=== PATIENT | female | born 2000 | race Caucasian/White ===

== ENCOUNTER 2024-03-07 19:20 | Emergency (ER) | payer OTHER, SELFPAY ==
--- NOTE | 2024-03-07 19:42 | ER ---
Nurse's Notes [facility] Name: Leatha Briscoe Age: 23 yrs Sex: Female : 2000 Arrival Date: 03/07/2024 Time: 19:20 Bed IW1 Private MD: Diagnosis: Cutaneous abscess of left lower limb Presentation: 03/07 19:35 Chief complaint: Patient states: red bump on left leg, started 2 days ago. Now my left tm6 calf and foot feels numb. Coronavirus screen: Client denies travel out of the [place] in the last 14 days. Ebola Screen: Patient negative for fever greater than or equal to 101.5 degrees Fahrenheit, and additional compatible Ebola Virus Disease symptoms Patient denies exposure to infectious person. Patient denies travel to an Ebola-affected area in the 21 days before illness onset. No symptoms or risks identified at this time. Initial Sepsis Screen: Does the patient meet any 2 criteria? No. Patient's initial sepsis screen is negative. Does the patient have a suspected source of infection? No. Patient's initial sepsis screen is negative. Risk Assessment: Do you want to hurt yourself or someone else? Patient reports no desire to harm self or others. Onset of symptoms was March 05, 2024. 19:35 Method Of Arrival: Ambulatory tm6 19:35 Acuity: CORY 4 tm6 Triage Assessment: 19:35 General: Appears in no apparent distress. Behavior is calm, cooperative. Pain: Denies tm6 pain. Pain: Complains of pain in left calf and dorsum of left foot Quality of pain is described as numb, Pain began today. EENT: No signs and/or symptoms were reported regarding the EENT system. Neuro: Level of Consciousness is awake, alert, obeys commands, Oriented to person, place, time, situation. Cardiovascular: Patient's skin is warm and dry. Respiratory: Airway is patent Respiratory effort is even, unlabored, Respiratory pattern is regular, symmetrical. GI: No signs and/or symptoms were reported involving the gastrointestinal system. Abdomen is flat, non-distended. : No signs and/or symptoms were reported regarding the genitourinary system. Derm: Abscess located on left reza is dime sized, has no drainage, is red, is raised. Musculoskeletal: Reports numbness in left calf and dorsum of left foot since today. Historical: - Allergies: 19:35 No Known Allergies; tm6 - PMHx: 19:35 None; tm6 - PSHx: 19:35 None; tm6 - Immunization history:: Flu vaccine is not up to date. - Infectious Disease History:: Denies. - Social history:: Smoking status: Patient denies any tobacco usage or history of. Screenin:41 [facility] ED Fall Risk Assessment (Adult) History of falling in the last 3 months, tm6 including since admission No falls in past 3 months (0 pts) Confusion or Disorientation No (0 pts) Intoxicated or Sedated No (0 pts) Impaired Gait No (0 pts) Mobility Assist Device Used No (0 pt) Altered Elimination No (0 pt) Score/Fall Risk Level 0 - 2 = Low Risk Oriented to surroundings, Maintained a safe environment, Educated pt \T\ family on fall prevention, incl call for assistance when getting out of bed. Abuse screen: Denies threats or abuse. Denies injuries from another. Nutritional screening: No deficits noted. Tuberculosis screening: No symptoms or risk factors identified. Assessment: 19:41 Reassessment: see triage assessment. tm6 Vital Signs: 19:34 Pulse 86; Resp 16; Temp 98.1(TE); Pulse Ox 100% on R/A; Weight 73.94 kg; Height 5 ft. 7 tm6 in. ; Pain 0/10; 19:34 BP 120 / 72; MAP 86 mmHg; tm6 19:34 Body Mass Index 25.53 (73.94 kg, 170.18 cm) tm6 19:34 Pain Scale: Adult tm6 ED Course: 19:23 Patient arrived in ED. im 19:35 Arm band placed on right wrist. tm6 19:36 Triage completed. tm6 19:37 Riya Lacey F[facility]-C [facility]. kb 19:37 Jimbo Moscoso MD is Attending Physician. kb 19:41 Sonu Dickinson, PAPI is Primary Nurse. tm6 19:41 Patient has correct armband on for positive identification. Provided Education on: use tm6 of prescription . 19:41 No provider procedures requiring assistance completed. Patient did not have IV access tm6 during this emergency room visit. Administered Medications: 19:47 Drug: Trimethoprim-Sulfamethoxazole PO (160 mg-800 mg (DS) 1 tablet PO once Route: PO; tm6 19:47 Follow up: Response: Medication administered at discharge. tm6 Medication: 19:41 VIS not applicable for this client. tm6 Outcome: 19:42 Discharge ordered by . kb 19:47 Discharged to home ambulatory, with family, tm6 19:47 Condition: stable 19:47 Discharge instructions given to patient, family, Instructed on discharge instructions, follow up and referral plans. medication usage, Demonstrated understanding of instructions, follow-up care, medications, Prescriptions given X 1, :47 Patient left the ED. tm6 Signatures: Riya Lacey, MOTOR TESTER-C MOTOR TESTER-Tamia Singletary Tawney, RN RN tm6
--- NOTE | 2024-03-07 19:42 | EDPHYS ---
Physician Documentation [facility] Name: Leatha Briscoe Age: 23 yrs Sex: Female : 2000 Arrival Date: 03/07/2024 Time: 19:20 Bed IW1 Private MD: ED Physician Jimbo Moscoso HPI: 03/07 20:16 This 23 yrs old Female presents to ER via Ambulatory with complaints of Leg Swelling - kb left. 20:16 Pt is a 23 year old female who presents for abscess to left reza that started 2 days kb ago. Reports slight redness and pain surrounding the area and states it has gotten progressively worse. Denies fever, drainage. Historical: - Allergies: 19:35 No Known Allergies; tm6 - PMHx: 19:35 None; tm6 - PSHx: 19:35 None; tm6 - Immunization history:: Flu vaccine is not up to date. - Infectious Disease History:: Denies. - Social history:: Smoking status: Patient denies any tobacco usage or history of. ROS: 20:14 Constitutional: As per HPI kb Exam: 20:14 Constitutional: This is a well developed, well nourished patient who is awake, alert, kb and in no acute distress. Head/Face: Normocephalic, atraumatic. ENT: Moist Mucous membranes Cardiovascular: Regular rate Respiratory: Respirations even and unlabored. No increased work of breathing. Talking in full sentences Abdomen/GI: Soft, non-tender. No distention MS/ Extremity: Pulses equal, no cyanosis. Neurovascular intact. Full, normal range of motion. Neuro: Awake and alert, GCS 15, oriented to person, place, time, and situation. 20:14 Skin: abscess, that is small, of the left reza, with surrounding cellulitis, that is very mild, Vital Signs: 19:34 Pulse 86; Resp 16; Temp 98.1(TE); Pulse Ox 100% on R/A; Weight 73.94 kg; Height 5 ft. 7 tm6 in. ; Pain 0/10; 19:34 BP 120 / 72; MAP 86 mmHg; tm6 19:34 Body Mass Index 25.53 (73.94 kg, 170.18 cm) tm6 19:34 Pain Scale: Adult tm6 Procedures: 20:14 I \T\ D: Incision and drainage was performed for an abscess of the left reza Prepped with kb alcohol, Anesthetized with nothing. Incised with 18G needle. Drained small amount purulent fluid. the patient tolerated the procedure well. MDM: 19:37 Medical Screening Exam initiated kb 20:16 Differential diagnosis: abscess, allergic reaction, cellulitis, insect bite. Data kb reviewed: vital signs, nurses notes. Counseling: I had a detailed discussion with the patient and/or guardian regarding the historical points, exam findings, and any diagnostic results supporting the discharge/admit diagnosis, the need for outpatient follow up, a family practitioner, to return to the emergency department if symptoms worsen or persist or if there are any questions or concerns that arise at home. Administered Medications: 19:47 Drug: Trimethoprim-Sulfamethoxazole PO (160 mg-800 mg (DS) 1 tablet PO once Route: PO; tm6 19:47 Follow up: Response: Medication administered at discharge. tm6 Disposition Summary: 03/07/24 19:42 Discharge Ordered Notes: Location: Home kb Condition: Stable kb Diagnosis - Cutaneous abscess of left lower limb kb Followup: kb - With: Emergency Department - When: As needed - Reason: Worsening of condition Followup: kb - With: Private Physician - When: 2 - 3 days - Reason: Recheck today's complaints, Continuance of care, Re-evaluation by your physician Discharge Instructions: - Discharge Summary Sheet kb - Skin Abscess, [id number] kb - Incision and Drainage, Care After kb Forms: - Medication Reconciliation Form kb - Antibiotic Education kb - Prescription Opioid Use kb - Patient Portal Instructions kb - Leadership Thank You Letter kb Prescriptions: - Bactrim DS 800-160 mg Oral Tablet - take 1 tablet ORAL route every 12 hours for 10 days; 20 tablet; Refills: 0, kb Product Selection Permitted Signatures: Riya Lacey, JOYCEC SECTION[employer]T MOLD ASSEMBLER-Sonu Daniel, RN RN tm6
[2024-03-07] MEDS ORDERED: SMZ./TMP. 800/160 MG TABLET ONE (19:45)
[2024-03-07 20:39] VITALS: BP 120/72; TEMP 98.1; O2SAT 100
== END 2024-03-07 19:47 | disposition home or self-care (01) ==
LOC: ER 19:20
DX: L02.416 Cutaneous abscess of left lower limb (principal); L03.116 Cellulitis of left lower limb
CPT/HCPCS: 99283